=== PATIENT | female | born 1990 | race Caucasian/White ===

== ENCOUNTER 2017-04-06 05:08 | Emergency (ER) | payer OTHER ==
[2017-04-06 05:26] VITALS: BMI 24.1
--- NOTE | 2017-04-06 05:57 | PDOC ---
History of Present Illness - General History Source: Patient Exam Limitations: No Limitations - History of Present Illness Travel History: No Initial Comments: 04/06/17 05:57 LMP 12/20/2016 2013 termination at 6.5 weeks gestation 26-year-old female with no past medical history presents to the emergency department complaining of lower abdominal cramping 3 hours. Pain is described as 8/10 nonradiating intermittent cramping without nausea/vomiting, fever/chills /diarrhea, chest pain, shortness of breath, flank pains, urinary symptoms: Frequency/urgency/hesitancy, hematuria. Timing/Duration: reports: intermittent Quality: reports: cramping Abdominal Pain Onset Location: reports: suprapubic Pain Radiation: reports: no radiation <Alix Zarate - Last Filed: 04/06/17 07:06> <Noemy Collazo - Last Filed: 04/06/17 09:49> - General Chief Complaint: Pain Stated Complaint: 15 WEEKS , CRAMPS Time Seen by Provider: 04/06/17 05:21 Past History - Past Medical History Other medical history: Denies - Immunization History Immunization Up to Date: No - Psycho/Social/Smoking Cessation Hx Anxiety: No Suicidal Ideation: No Smoking History: Never smoked Have you smoked in the past 12 months: No Information on smoking cessation initiated: No Hx Alcohol Use: No Drug/Substance Use Hx: No Substance Use Type: None Hx Substance Use Treatment: No <Alix Zarate - Last Filed: 04/06/17 07:06> <Noemy Collazo - Last Filed: 04/06/17 09:49> - Past Medical History Allergies/Adverse Reactions: Allergies Allergy/AdvReac Type Severity Reaction Status Date / Time No Known Allergies Allergy Verified 04/06/17 05:26 Home Medications: Ambulatory Orders Ondansetron [Zofran *Odt*] 4 mg SL PRN PRN #10 od.tablet 04/06/17 Review of Systems - Review of Systems Able to Perform ROS?: Yes Comments:: 04/06/17 05:56 CONSTITUTIONAL: Absent: fever, chills, diaphoresis, generalized weakness, malaise, loss of appetite HEENT: Absent: rhinorrhea, nasal congestion, throat pain, throat swelling, difficulty swallowing, mouth swelling, ear pain, eye pain, visual Changes CARDIOVASCULAR: Absent: chest pain, loss of consciousness, palpitations, irregular heart rate, peripheral edema RESPIRATORY: Absent: cough, shortness of breath, dyspnea with exertion, orthopnea, wheezing, stridor, hemoptysis GASTROINTESTINAL: Suprapubic cramps Absent: abdominal distension, nausea, vomiting, diarrhea, constipation, melena, hematochezia GENITOURINARY: Absent: dysuria, frequency, urgency, hesitancy, hematuria, flank pain, genital pain MUSCULOSKELETAL: Absent: myalgia, arthralgia, joint swelling SKIN: Absent: rash, itching, pallor HEMATOLOGIC/IMMUNOLOGIC: Absent: easy bleeding, easy bruising, lymphadenopathy, frequent infections ENDOCRINE: Absent: unexplained weight gain, unexplained weight loss, heat intolerance, cold intolerance NEUROLOGIC: Absent: headache, focal weakness or paresthesias, dizziness, unsteady gait, seizure, mental status changes, bladder or bowel incontinence PSYCHIATRIC: Absent: anxiety, depression, suicidal or homicidal ideation, hallucinations. Is the patient limited Taiwanese proficient: No <Alix Zarate - Last Filed: 04/06/17 07:06> *Physical Exam - Vital Signs Last Vital Signs Temp Pulse Resp BP Pulse Ox 98.5 F 86 19 116/82 98 04/06/17 05:21 04/06/17 05:21 04/06/17 05:21 04/06/17 05:21 04/06/17 05:21 - Physical Exam Comments: 04/06/17 05:56 GENERAL: Well developed, well nourished. Awake and alert. No acute distress. HEENT: Normocephalic, atraumatic. PERRLA, EOMI. No conjunctival pallor. Sclera are non- icteric. Moist mucous membranes. Oropharynx is clear. NECK: Supple. Full ROM. No JVD. Carotid pulses 2+ and symmetric, without bruits. No thyromegaly. No lymphadenopathy. CARDIOVASCULAR: Regular rate and rhythm. No murmurs, rubs, or gallops. Distal pulses are 2+ and symmetric. PULMONARY: No evidence of respiratory distress. Lungs clear to auscultation bilaterally. No wheezing, rales or rhonchi. ABDOMINAL: Soft. Non-tender. Non-distended. No rebound or guarding. No organomegaly. Normoactive bowel sounds. MUSCULOSKELETAL Normal range of motion at all joints. No bony deformities or tenderness. No CVA tenderness. EXTREMITIES: No cyanosis. No clubbing. No edema. No calf tenderness. SKIN: Warm and dry. Normal capillary refill. No rashes. No jaundice. NEUROLOGICAL: Alert, awake, appropriate. Cranial nerves 2-12 intact. No deficits to light touch and temperature in face, upper extremities and lower extremities. No motor deficits in the in face, upper extremities and lower extremities. Normoreflexic in the upper and lower extremities. Normal speech. Toes are down- going bilaterally. Gait is normal without ataxia. PSYCHIATRIC: Cooperative. Good eye contact. Appropriate mood and affect. <Alix Zarate - Last Filed: 04/06/17 07:06> - Vital Signs Last Vital Signs Temp Pulse Resp BP Pulse Ox 98.4 F 88 16 129/73 97 04/06/17 09:11 04/06/17 09:11 04/06/17 09:11 04/06/17 09:11 04/06/17 09:11 <Noemy Collazo - Last Filed: 04/06/17 09:49> ED Treatment Course - LABORATORY CBC & Chemistry Diagram: 04/06/17 06:06 04/06/17 06:06 <Alix Zarate - Last Filed: 04/06/17 07:06> - LABORATORY CBC & Chemistry Diagram: 04/06/17 06:06 04/06/17 06:06 - ADDITIONAL ORDERS Additional order review: Laboratory Results 04/06/17 04/06/17 04/06/17 06:19 06:06 06:06 Sodium Potassium Chloride Carbon Dioxide Anion Gap BUN Creatinine Creat Clearance w eGFR Random Glucose Calcium Total Bilirubin AST ALT Alkaline Phosphatase Total Protein Albumin Beta HCG, Quant 65192.5 Urine Color Yellow Urine Appearance Clear Urine pH 5.0 Urine Protein Negative Urine Glucose (UA) Negative Urine Ketones Negative Urine Blood 1+ H Urine Nitrite Negative Urine Bilirubin Negative Urine Urobilinogen Negative Ur Leukocyte Esterase Negative Urine RBC 1 Urine WBC 2 Ur Epithelial Cells Rare Urine Mucus Rare Blood Type O POSITIVE Antibody Screen Negative 04/06/17 06:06 Sodium 141 Potassium 4.0 Chloride 107 Carbon Dioxide 24 Anion Gap 10 BUN 11 Creatinine 0.6 Creat Clearance w eGFR > 60 Random Glucose 85 Calcium 9.1 Total Bilirubin 0.2 D AST 13 L D ALT 15 Alkaline Phosphatase 42 L Total Protein 7.4 Albumin 3.9 Beta HCG, Quant Urine Color Urine Appearance Urine pH Urine Protein Urine Glucose (UA) Urine Ketones Urine Blood Urine Nitrite Urine Bilirubin Urine Urobilinogen Ur Leukocyte Esterase Urine RBC Urine WBC Ur Epithelial Cells Urine Mucus Blood Type Antibody Screen 04/06/17 06:06 RBC 4.39 MCV 88.1 MCHC 34.6 RDW 17.0 H MPV 8.9 Neutrophils % 84.3 H Lymphocytes % 11.2 Monocytes % 3.6 L Eosinophils % 0.7 D Basophils % 0.2 <Noemy Collazo - Last Filed: 04/06/17 09:49> Progress Note - Progress Note Progress Note: Transvaginal ultrasound has been ordered. B/W (cbc/cmp/beta/T&S, UA) 0705hrs: Signed out to BISMARK Collazo F/U blood work and transvag US <Alix Zarate - Last Filed: 04/06/17 07:06> *DC/Admit/Observation/Transfer <Alix Zarate - Last Filed: 04/06/17 07:06> - Discharge Dispostion Admit: No <Noemy Collazo - Last Filed: 04/06/17 09:49> Diagnosis at time of Disposition: Abdominal pain during Qualifiers: Trimester: second trimester Qualified Code(s): O26.892 - Other specified related conditions, second trimester - Discharge Dispostion Disposition: HOME Condition at time of disposition: Stable - Prescriptions Prescriptions: Ondansetron [Zofran *Odt*] 4 mg SL PRN PRN #10 od.tablet PRN Reason: vomiting - Referrals Referrals: Clemencia Hawley MD [Primary Care Provider] - - Patient Instructions Printed Discharge Instructions: DI for -- Discomforts and Remedies Additional Instructions: Rest, drink lots of fluids: Teas, water, soups Launne cassidy, carbonated beverages for the bubbles May try peppermint teas Avoid heavy , spicy or fatty foods until symptoms have resolved Avoid contact with others until fevers and symptoms resolved Lots of handwashing and good hygiene Continue [id number] medications for symptomatic relief Tylenol or Motrin for fever and pain May use Zofran-one tablet dissolved on tongue as needed for nauseousness. May repeat times one every 8 hours Followup with private physician in one to 2 days as needed Return to emergency department for worsened symptoms, fevers, dehydration
[2017-04-06 06:27] LABS: URINE APPEARANCE CLEAR; URINE BILIRUBIN NEGATIVE (NEGATIVE); URINE COLOR YELLOW; URINE GLUCOSE (UA) NEGATIVE (NEGATIVE); URINE KETONE NEGATIVE (NEGATIVE); URINE LEUK ESTERASE NEGATIVE (NEGATIVE); URINE NITRITE NEGATIVE (NEGATIVE); URINE PROTEIN NEGATIVE (NEGATIVE); URINE UROBILINOGEN NEGATIVE E.U./dl (0.2-1.0)
[2017-04-06 06:32] LABS: URINE BLOOD 1+ (NEGATIVE)
[2017-04-06 06:36] LABS: URINE MUCUS RARE; URINE RBC 1 /hpf (0-3); URINE WBC 2 /hpf (3-5)
[2017-04-06 06:39] LABS: BASOPHIL 0.2 % (0-2.0); EOSINOPHIL 0.7 % (0-4.5); MCH 30.5 pg (25.7-33.7); MCHC 34.6 g/dl (32.0-36.0); MEAN CELL VOLUME 88.1 fl (80-96); MEAN PLT VOLUME 8.9 fl (7.5-11.1); NEUTROPHILS 84.3 % (42.8-82.8); PLATELET COUNT 174 K/MM3 (134-434); WHITE BLOOD COUNT 10.6 K/mm3 (4.0-10.0)
[2017-04-06 06:58] LABS: ALBUMIN 3.9 g/dl (3.4-5.0); ANION GAP 10 (8-16); BILIRUBIN,TOTAL 0.2 mg/dL (0.2-1.0); CALCIUM 9.1 mg/dL (8.5-10.1); CO2 24 mmol/L (21-32); CREATININE 0.6 mg/dL (0.55-1.02); GLUCOSE,RANDOM 85 mg/dL (74-106); SGOT/AST 13 U/L (15-37); SGPT/ALT 15 U/L (12-78); TOT PROT 7.4 g/dl (6.4-8.2)
[2017-04-06 06:59] LABS: ALK PHOS 42 U/L (45-117)
[2017-04-06 09:12] VITALS: BP 129/73; PULSE 88; TEMP 98.4
== END 2017-04-06 09:51 | disposition home or self-care (01) ==
LOC: JER 05:08 → SUPCPDRO 05:08 → JER 09:51
DX: O26.892 Other specified pregnancy related conditions, second trimester (principal); R10.30 Lower abdominal pain, unspecified; Z3A.16 16 weeks gestation of pregnancy
CPT/HCPCS: 36415; 76801-TC; 80053; 81003; 81015; 84702; 85025; 86850; 86900; 86901; 99282-25

== ENCOUNTER 2017-09-26 23:30 | Inpatient (IN) | payer OTHER ==
[2017-09-27 01:32] LABS: BASOPHIL 0.2 % (0-2.0); EOSINOPHIL 0.8 % (0-4.5); MCH 31.8 pg (25.7-33.7); MCHC 33.8 g/dl (32.0-36.0); MEAN CELL VOLUME 94.1 fl (80-96); MEAN PLT VOLUME 9.9 fl (7.5-11.1); NEUTROPHILS 63.5 % (42.8-82.8); PLATELET COUNT 193 K/MM3 (134-434); RDW 13.6 % (11.6-15.6); WHITE BLOOD COUNT 9.2 K/mm3 (4.0-10.0)
[2017-09-27 02:05] VITALS: BMI 26.6
[2017-09-27 02:09] LABS: ANION GAP 13 (8-16); CALCIUM 9.7 mg/dL (8.5-10.1); CO2 22 mmol/L (21-32); CREATININE 0.6 mg/dL (0.55-1.02); GLUCOSE,RANDOM 67 mg/dL (74-106)
[2017-09-27] MEDS ORDERED: DEXTROSE 5%-LACTATED RINGERS 1,000 ML IV SCH (02:45)
[2017-09-27] MEDS ORDERED: BUTORPHANOL TARTRATE 1 MG/ML VIAL IVPUSH ONE (05:31)
[2017-09-27] MEDS ORDERED: PROMETHAZINE HCL 25 MG/1 ML VIAL IVPUSH ONE (05:31)
--- NOTE | 2017-09-27 05:37 | PN ---
Progress Note (short form) - Note Progress Note: cx 4 cm 80 vx 0 mr, clear, fhr cat 1. regular contraction
--- NOTE | 2017-09-27 05:42 | HP ---
Past Medical History - Primary Care Physician PCP:: João Stokes - Admission Chief Complaint: 40.1 weeks, labor History of Present Illness: 27 edc by sono 09/26/17 in labor, cx 1 cm 80 vx -1 mi, fhr cat 1, regular contraction in labor History Source: Patient Limitations to Obtaining History: No Limitations - Past Medical History Renal/: Yes: UTI (hx of pyelo with this ) ...: 2 ...Para: 0 ...Term: 0 ...: 0 ...Spon : 0 ...Induced : 1 ...Multiple Gestation: 0 ...LMP: 12/30/16 ... Weeks Gestation by Dates: 40.1 ...EDC by Dates: 09/26/17 ...EDC by Sono: 09/26/17 - Past Surgical History Hx Myomectomy: No Hx Transabdominal Cerclage: No - Smoking History Smoking history: Never smoked Have you smoked in the past 12 months: No - Alcohol/Substance Use Hx Alcohol Use: No - Social History Usual Living Arrangement: Yes: With Spouse History of Recent Travel: No Home Medications - Allergies Allergies/Adverse Reactions: Allergies Allergy/AdvReac Type Severity Reaction Status Date / Time No Known Allergies Allergy Verified 04/06/17 05:26 - Home Medications Home Medications: Ambulatory Orders Ferrous Gluconate [Iron] 256 mg PO DAILY 09/27/17 Vits #93/Iron Fum/FA [ Formula Tablet] 1 tab PO DAILY 09/27/17 Review of Systems - Review of Systems Constitutional: reports: No Symptoms Eyes: reports: No Symptoms HENT: reports: No Symptoms Neck: reports: No Symptoms Respiratory: reports: No Symptoms Gastrointestinal: reports: No Symptoms Genitourinary: reports: No Symptoms Breasts: reports: No Symptoms Reported Musculoskeletal: reports: No Symptoms Integumentary: reports: No Symptoms Neurological: reports: No Symptoms Endocrine: reports: No Symptoms Hematology/Lymphatic: reports: No Symptoms Psychiatric: reports: No Symptoms Physical Exam - Maternity Vital Signs: Vital Signs Temperature 97.8 F 09/27/17 02:00 Pulse Rate 68 09/27/17 03:00 Respiratory Rate 20 09/27/17 03:00 Blood Pressure 124/65 09/27/17 03:00 O2 Sat by Pulse Oximetry (%) Constitutional: Yes: Well Nourished, No Distress, Calm Eyes: Yes: WNL, Conjunctiva Clear, EOM Intact HENT: Yes: WNL, Atraumatic, Normocephalic Neck: Yes: WNL, Supple, Trachea Midline Cardiovascular: Yes: WNL, Regular Rate and Rhythm Breast(s): Yes: WNL - Abdominal Exam/OB Fundal Height: 38 Number of Fetuses: Single Presentation: Vertex Contractions: Yes Regularity: Regular Intensity: Mod/Strong Monitor Mode: External Heart Rate Location: [facility] Category: I Accelerations: Uniform Decelerations: None - Vaginal Exam/OB Vaginal Bleediing: Bloody Show Speculum Exam: No Dilatation (cm): 1 to 2 Effacement (%): 80 Amniotic Membrane Status: Intact Presentation: Vertex/Position Station: -1 - Physical Exam Musculoskeletal: Yes: WNL Extremities: Yes: WNL Edema: Yes Edema: LLE: Trace, RLE: Trace Deep Tendon Reflex Grade: Normal +2 Psychiatric: Yes: WNL - Labs Lab Results: CBC, BMP 09/27/17 01:15 09/27/17 01:15 Hemorrhage Risk Assessment - Risk Factors Medium Risk Factors: Yes: None High Risk Factors: Yes: None Risk Score: 1 Risk Level: Medium Risk Problem List - Problems (1) Post term over 40 weeks Code(s): O48.0 - POST-TERM (2) Labor established Code(s): [id number] - Assessment/Plan admit for vaginal delivery, FHM, pain management
[2017-09-27] MEDS ORDERED: LACTATED RINGERS SOLUTION 1,000 ML/1,000 ML INFUS.BAG IV SCH (05:45)
[2017-09-27 07:44] LABS: INR 0.91 (0.82-1.09); PROTHROMBIN TIME (PATIENT) 10.3 SEC (9.98-11.88)
[2017-09-27] MEDS ORDERED: FENTANYL/BUPIVACAINE/NS/PF - PCEA - 50 ML DISP.SYRIN EP SCH ×2 (08:15→09:06)
--- NOTE | 2017-09-27 10:14 | PN ---
Progress Note (short form) - Note Progress Note: cx 6 cm, 100 vx 0 mr ,clear fluid, head compression with contraction, good BTB variability. LT side, o2, revaluate Problem List - Problems (1) Post term over 40 weeks Code(s): O48.0 - POST-TERM (2) Labor established Code(s): [id number] -
[2017-09-27] MEDS ORDERED: BENZOCAINE 28 GM HEMORRHOIDAL OINTMENT TP PRN (13:41)
[2017-09-27] MEDS ORDERED: METHYLERGONOVINE MALEATE 0.2 MG/1 ML AMP IM PRN (13:41)
[2017-09-27] MEDS ORDERED: BENZOCAINE 20% 57 GM BOTTLE TP PRN (13:41)
[2017-09-27] MEDS ORDERED: BISACODYL 10 MG SUPP.RECT RC PRN (13:41)
[2017-09-27] MEDS ORDERED: WITCH HAZEL 50% (TUCKS) 40 PAD/JAR PAD TP PRN (13:41)
[2017-09-27] MEDS ORDERED: oxyCODONE HCL 5 MG TABLET PO PRN (13:41)
[2017-09-27] MEDS ORDERED: D5W-LR W/ 20 UNITS OXYTOCIN 20 UNIT/1,000 ML INFUS.BAG IV SCH (13:45)
[2017-09-27 14:10] LABS: ARTERIAL BLD GAS O2 SATURATION 8.5 % (90-98.9); ARTERIAL BLOOD GAS BASE EXCESS -2.2 meq/l (-2-2); ARTERIAL BLOOD GAS HCO3 26.8 meq/L (22-26); ARTERIAL BLOOD GAS pH 7.25 (7.35-7.45)
[2017-09-27 14:14] LABS: ARTERIAL BLOOD GAS PO2 9.5 mmHg (80-100)
[2017-09-27 14:16] LABS: VENOUS PH 7.32 (7.32-7.42)
[2017-09-27 14:17] LABS: VENOUS BLOOD GAS HCO3 24.6 meq/L (19-25)
[2017-09-27] MEDS: ACETAMINOPHEN 325 MG TABLET (FP) PO PRN ×2 (16:28→22:15)
[2017-09-27] MEDS: IBUPROFEN 600 MG TABLET (FP) PO PRN ×2 (16:29→22:15)
[2017-09-27] MEDS: FERROUS SO4 325 MG TABLET (FP) PO SCH (22:13)
[2017-09-28 06:58] LABS: BASOPHIL 0.2 % (0-2.0); EOSINOPHIL 0.8 % (0-4.5); MCH 31.9 pg (25.7-33.7); MCHC 33.7 g/dl (32.0-36.0); MEAN CELL VOLUME 94.7 fl (80-96); MEAN PLT VOLUME 9.1 fl (7.5-11.1); NEUTROPHILS 72.4 % (42.8-82.8); PLATELET COUNT 132 K/MM3 (134-434); RDW 13.5 % (11.6-15.6); WHITE BLOOD COUNT 10.3 K/mm3 (4.0-10.0)
[2017-09-28] MEDS: FERROUS SO4 325 MG TABLET (FP) PO SCH ×2 (09:37→21:12)
[2017-09-28] MEDS: IBUPROFEN 600 MG TABLET (FP) PO PRN ×2 (09:37→21:13)
[2017-09-28] MEDS: PRENATAL VITAMINS W/ FOLIC ACID TABLET (FP) PO SCH (09:37)
[2017-09-28] MEDS: ACETAMINOPHEN 325 MG TABLET (FP) PO PRN ×2 (09:38→21:12)
--- NOTE | 2017-09-28 09:44 | PN ---
Post Progress Note - Subjective Subjective: 27 yo Para 1 status post vaginal delivery, seen and evaluated. Doing well, no complaints. Post Day: 1 Type of Delivery: Vital Signs: Vital Signs Temperature 98.5 F 09/28/17 07:45 Pulse Rate 84 09/28/17 07:45 Respiratory Rate 20 09/28/17 07:45 Blood Pressure 102/58 09/28/17 07:45 O2 Sat by Pulse Oximetry (%) 98 09/27/17 14:45 Breast Exam: Yes: Soft Uterus: Yes: Fundus Firm Abdomen/GI: Yes: Abdomen soft, Tolerating PO Lochia: Yes: Rubra Lochia, amount: Moderate Extremities: Yes: Calves non-tender Activity: Ambulating - Labs Labs: CBC WBC 10.3 K/mm3 (4.0-10.0) H 09/28/17 06:00 RBC 4.01 M/mm3 (3.60-5.2) D 09/28/17 06:00 Hgb 12.8 GM/dL (10.7-15.3) D 09/28/17 06:00 Hct 38.0 % (32.4-45.2) D 09/28/17 06:00 MCV 94.7 fl (80-96) 09/28/17 06:00 MCH 31.9 pg (25.7-33.7) 09/28/17 06:00 MCHC 33.7 g/dl (32.0-36.0) 09/28/17 06:00 RDW 13.5 % (11.6-15.6) 09/28/17 06:00 Plt Count 132 K/MM3 (134-434) L D 09/28/17 06:00 MPV 9.1 fl (7.5-11.1) 09/28/17 06:00 Neutrophils % 72.4 % (42.8-82.8) 09/28/17 06:00 Lymphocytes % 20.1 % (8-40) D 09/28/17 06:00 Monocytes % 6.5 % (3.8-10.2) 09/28/17 06:00 Eosinophils % 0.8 % (0-4.5) 09/28/17 06:00 Basophils % 0.2 % (0-2.0) 09/28/17 06:00 Assessment/Plan Status post vaginal delivery Stable Continue routine care
[2017-09-28] MEDS: HYDROCORTISONE 2.5% TOPICAL CREAM 30 GM TUBE PR SCH (10:43)
[2017-09-28] MEDS ORDERED: SENNOSIDES/DOCUSATE COMBO (SENNA PLUS) TABLET (UD) PO PRN (22:00)
[2017-09-29] MEDS: ACETAMINOPHEN 325 MG TABLET (FP) PO PRN ×2 (05:27→12:23)
[2017-09-29] MEDS: IBUPROFEN 600 MG TABLET (FP) PO PRN ×2 (05:27→12:23)
--- NOTE | 2017-09-29 06:09 | DS ---
Physical Exam-[facility] Vital Signs: Vital Signs Temperature 99 F 09/28/17 22:00 Pulse Rate 78 09/28/17 22:00 Respiratory Rate 18 09/28/17 22:00 Blood Pressure 117/59 09/28/17 22:00 O2 Sat by Pulse Oximetry (%) 98 09/27/17 14:45 Constitutional: Yes: Well Nourished Eyes: Yes: Conjunctiva Clear HENT: Yes: Atraumatic Neck: Yes: Supple Cardiovascular: Yes: Regular Rate and Rhythm Respiratory: Yes: Regular Gastrointestinal: Yes: Normal Bowel Sounds External Genitalia: Yes: Normal Vaginal Exam: Yes: Normal Cervix: Yes: Normal Uterus: Yes: Firm ....Post : Yes: Uterus firm, Moderate lochia serosa Breast(s): Yes: WNL Neurological: Yes: Alert, Oriented ...Motor Strength: WNL Psychiatric: Yes: Alert, Oriented Labs: CBC, BMP 09/28/17 06:00 09/27/17 01:15 Delivery - Delivery Type of Anesthesia: Local, Epidural EBL (cc): 300 Delivery, Single - Stages of Labor Date 1st Stage Initiatied: 09/27/17 Time 1st Stage Initiated: 05:00 Date 2nd Stage Initiated: 09/27/17 Time 2nd Stage Initiated: 13:00 Date of Delivery: 09/27/17 Time of Delivery: 13:25 Time Placenta Delivered: 13:32 - Condition of Flap Maker/Customer Strategy Manager Present: [place]: Martin Caruso Infant Gender: Male Weight: 6 lb 9 oz Position: Left, OA Total Hours ROM (Hrs/Mins): 9hrs 57mins - 1 Minute Total Score: 9 5 Minutes Total Score: 10 - [place] Feeding Plan Initial Plan: Exclusive throughout hospitalization Discharge Summary Reason For Visit: ADMIT FOR LABOR Current Active Problems Labor established (Acute) Post term over 40 weeks (Acute) Status post normal vaginal delivery (Acute) Procedures: Principal: Normal spontaneous vaginal delivery Hospital Course: Routine care Condition: Good - Instructions Diet, Activity, Other Instructions: Regular diet No douching, no sexual intercourse x 6 weeks F/U in clinic in 6 weeks Referrals: João Stokes MD [Family Provider] - Disposition: HOME - Home Medications Comprehensive Discharge Medication List: Ambulatory Orders Ferrous Gluconate [Iron] 256 mg PO DAILY 09/27/17 Vits #93/Iron Fum/FA [ Formula Tablet] 1 tab PO DAILY 09/27/17
[2017-09-29 08:09] VITALS: BP 104/60; PULSE 77; TEMP 98.4
[2017-09-29] MEDS: HYDROCORTISONE 2.5% TOPICAL CREAM 30 GM TUBE PR SCH (09:19)
[2017-09-29] MEDS: PRENATAL VITAMINS W/ FOLIC ACID TABLET (FP) PO SCH (09:20)
[2017-09-29] MEDS: FERROUS SO4 325 MG TABLET (FP) PO SCH (09:20)
== END 2017-09-29 14:00 | disposition home or self-care (01) | DRG 560 ==
LOC: JDEL 23:30 → JLDR 23:35 → J3W 09-27 15:18
PROVIDERS: ADMIT Obstetrics & Gynecology; ATTEND Obstetrics & Gynecology
PROC: 10E0XZZ Delivery of Products of Conception, External Approach (ICD-10-PCS; principal; 2017-09-27)
DX: O48.0 Post-term pregnancy (principal); Z3A.40 40 weeks gestation of pregnancy; Z37.0 Single live birth
CPT/HCPCS: 36415; 36600; 59409; 80048; 82803; 85025; 85610; 85730; 86593; 86850; 86900; 86901

== ENCOUNTER 2019-04-01 01:08 | Inpatient (IN) | payer OTHER | END 2019-04-03 14:45 | disposition home or self-care (01) | LOC: JDEL 01:08 → JLDR 03:30 → J3W 12:03 ==